=== PATIENT | female | born 1995 | race Two or more races ===

== ENCOUNTER → 2021-08-04 | Outpatient (CLI) | payer MEDICAID ==
[2021-08-04 13:14] LABS: Basophils # (auto) 0 10 ^3/uL (0-0.2); Basophils % (auto) 0.2 % (0.0-2.0); Eosinophils # (auto) 0.1 10 ^3/uL (0-0.8); Eosinophils % (auto) 0.6 % (0.0-7.0); Hemoglobin 13.3 g/dL (12.2-16.2); Lymphocytes # (auto) 1.5 10 ^3/uL (0.4-5.4); Lymphocytes % (auto) 16.3 % (10.0-50.0); Mean Corpuscular Volume 82.4 fL (80.0-100.0); Monocytes # (auto) 0.4 10 ^3/uL (0-1.3); Monocytes % (auto) 4.5 % (0.0-12.0); Neutrophils # (auto) 7.1 10 ^3/uL (1.6-8.6); Neutrophils % (auto) 78.4 % (37.0-80.0); Red Blood Cells 4.74 10^6/uL (4.0-5.20); Red Cell Distribution Width 14.2 % (11.8-14.3)
[2021-08-04 15:43] LABS: Amphetamine Screen, Urine NEGATIVE (NEGATIVE); Barbiturate Scree,Urine NEGATIVE (NEGATIVE); Benzodiazephine Screen, Urine NEGATIVE (NEGATIVE); Cannabinoid Screen, Urine NEGATIVE (NEGATIVE); Cocaine Screen, Urine NEGATIVE (NEGATIVE); Opiate Scree,Urine NEGATIVE (NEGATIVE); Phencyclidine Screen, Urine NEGATIVE (NEGATIVE)
[2021-08-07 07:06] LABS: RPR Non Reactive (Non Reactive)
== END | disposition home or self-care (01) ==
LOC: LAB 12:38
PROVIDERS: ATTEND Obstetrics & Gynecology
DX: Z34.80 Encounter for supervision of other normal pregnancy, unspecified trimester (principal); Z11.3 Encounter for screening for infections with a predominantly sexual mode of transmission; Z31.430 Encounter of female for testing for genetic disease carrier status for procreative management; Z36.0 Encounter for antenatal screening for chromosomal anomalies
CPT/HCPCS: 36415; 80307; 83036; 84112; 84144; 84702; 85025; 86592; 86703; 86762; 86850; 86900; 86901; 87086; 87340

== ENCOUNTER → 2021-09-14 | Outpatient (CLI) | payer MEDICAID ==
[2021-09-14 12:25] LABS: Amphetamine Screen, Urine NEGATIVE (NEGATIVE); Barbiturate Scree,Urine NEGATIVE (NEGATIVE); Benzodiazephine Screen, Urine NEGATIVE (NEGATIVE); Cannabinoid Screen, Urine NEGATIVE (NEGATIVE); Cocaine Screen, Urine NEGATIVE (NEGATIVE); Opiate Scree,Urine NEGATIVE (NEGATIVE); Phencyclidine Screen, Urine NEGATIVE (NEGATIVE)
== END | disposition home or self-care (01) ==
LOC: LAB 10:51
PROVIDERS: ATTEND Obstetrics & Gynecology
DX: Z34.80 Encounter for supervision of other normal pregnancy, unspecified trimester (principal)
CPT/HCPCS: 80307

== ENCOUNTER 2021-12-08 15:20 | Observation (INO) | payer MEDICAID ==
[~2021-12-08] VITALS: Ht 157.5 cm; Wt 97.1 kg
[2021-12-08] MEDS: TERBUTALINE SULFATE 1 MG/ML 1ML VIAL SC SCH ×3 (17:00→19:18)
[2021-12-08 20:17] LABS: Urine Bacteria FEW /hpf (None Seen); Urine Blood Negative /uL (Negative); Urine Mucus FEW (None Seen); Urine Specific Gravity 1.028 (1.001-1.035); Urine WBC 2 /hpf (0 - 5)
[2021-12-08] MEDS ORDERED: PREN-96 OR (20:47)
[2021-12-08] MEDS ORDERED: LACTATED RINGER'S 1,000 ML IV ONE (21:00)
[2021-12-08] MEDS ORDERED: BETAMETHASONE ACET (30mg/5ml) 5ml Vial 6mg/ml IM ONE (21:00)
== END 2021-12-08 22:09 | disposition home or self-care (01) ==
LOC: UNDOADMOB 15:20 → LDRP 15:20 → UNDODISOB 22:09
PROVIDERS: ADMIT Obstetrics & Gynecology; ATTEND Obstetrics & Gynecology
DX: O60.03 Preterm labor without delivery, third trimester (principal); O26.893 Other specified pregnancy related conditions, third trimester; N89.8 Other specified noninflammatory disorders of vagina; Z3A.34 34 weeks gestation of pregnancy
CPT/HCPCS: 59025; 81001; 81002; 94760; 96360; 96361; 96372; G0378; J0702; J3105

== ENCOUNTER 2021-12-09 20:40 | Observation (INO) | payer MEDICAID ==
[~2021-12-09] VITALS: Ht 157.5 cm; Wt 95.7 kg
[~2021-12-09 20:40] MED LIST: PREN-96 OR
[2021-12-09] MEDS ORDERED: BETAMETHASONE ACET (30mg/5ml) 5ml Vial 6mg/ml ONE (22:04)
== END 2021-12-09 22:30 | disposition home or self-care (01) ==
LOC: LDRP 20:40
PROVIDERS: ADMIT Obstetrics & Gynecology; ATTEND Obstetrics & Gynecology
DX: O60.03 Preterm labor without delivery, third trimester (principal); O26.893 Other specified pregnancy related conditions, third trimester; N89.8 Other specified noninflammatory disorders of vagina; Z3A.34 34 weeks gestation of pregnancy
CPT/HCPCS: 59025; 81002; 96372; G0378; J0702

== ENCOUNTER 2021-12-13 10:57 | Observation (INO) | payer MEDICAID ==
[~2021-12-13] VITALS: Ht 157.5 cm; Wt 82.6 kg
[2021-12-13] MEDS ORDERED: ACETAMINOPHEN 500 MG TAB PO ONE (11:45)
[2021-12-13] MEDS ORDERED: TERBUTALINE SULFATE 1 MG/ML 1ML VIAL SC ONE (11:45)
== END 2021-12-13 12:57 | disposition home or self-care (01) ==
LOC: LDRP 10:57
PROVIDERS: ADMIT Obstetrics & Gynecology Obstetrics; ATTEND Obstetrics & Gynecology Obstetrics
DX: O26.893 Other specified pregnancy related conditions, third trimester (principal); R10.30 Lower abdominal pain, unspecified; Z3A.35 35 weeks gestation of pregnancy
CPT/HCPCS: 59025; 81002; 94760; 96372; G0378; J3105

== ENCOUNTER → 2021-12-14 | Outpatient (CLI) | payer MEDICAID ==
[2021-12-14 11:53] LABS: Basophils # (auto) 0 10 ^3/uL (0-0.2); Eosinophils # (auto) 0 10 ^3/uL (0-0.8); Hematocrit 32.9 % (36.0-46.0); Lymphocytes # (auto) 1.7 10 ^3/uL (0.4-5.4); Monocytes # (auto) 0.5 10 ^3/uL (0-1.3); Monocytes % (auto) 4.8 % (0.0-12.0); Neutrophils # (auto) 7.5 10 ^3/uL (1.6-8.6); Neutrophils % (auto) 77.1 % (37.0-80.0); White Blood Cell 9.7 10^3/uL (4.4-10.8)
[2021-12-14 11:56] LABS: Basophils % (auto) 0.3 % (0.0-2.0); Eosinophils % (auto) 0.4 % (0.0-7.0); Hemoglobin 10.6 g/dL (12.2-16.2); Lymphocytes % (auto) 17.4 % (10.0-50.0); Mean Corpuscular Hemoglobin 25.6 pg (28.0-32.0); Mean Corpuscular Hgb Conc. 32.3 g/dL (32.0-36.0); Mean Corpuscular Volume 79.2 fL (80.0-100.0); Red Blood Cells 4.16 10^6/uL (4.0-5.20); Red Cell Distribution Width 13.7 % (11.8-14.3)
[2021-12-15 08:06] LABS: RPR Non Reactive (Non Reactive)
== END | disposition home or self-care (01) ==
LOC: LAB 11:29
PROVIDERS: ATTEND Obstetrics & Gynecology
DX: Z34.80 Encounter for supervision of other normal pregnancy, unspecified trimester (principal); Z3A.00 Weeks of gestation of pregnancy not specified
CPT/HCPCS: 36415; 84112; 85025; 86592

== ENCOUNTER 2021-12-28 10:14 | Observation (INO) | payer MEDICAID ==
[2021-12-28] MEDS ORDERED: TERBUTALINE SULFATE 1 MG/ML 1ML VIAL SC SCH (12:00)
== END 2021-12-28 12:51 | disposition home or self-care (01) ==
LOC: UNDOADMOB 10:14 → LDRP 10:14 → UNDODISOB 12:51
PROVIDERS: ADMIT Obstetrics & Gynecology; ATTEND Obstetrics & Gynecology
DX: O36.8130 Decreased fetal movements, third trimester, not applicable or unspecified (principal); Z3A.37 37 weeks gestation of pregnancy
CPT/HCPCS: 59025; 76818; 81002; 94760; 96372; G0378; J3105

== ENCOUNTER 2021-12-31 08:04 | Observation (INO) | payer MEDICAID ==
[~2021-12-31] VITALS: Ht 157.5 cm; Wt 84.4 kg
[2021-12-31] MEDS ORDERED: PROMETHAZINE HCL 25 MG/ML 1ML IV ONE (20:30)
== END 2021-12-31 19:42 | disposition home or self-care (01) ==
LOC: LDRP 16:45
PROVIDERS: ADMIT Obstetrics & Gynecology; ATTEND Obstetrics & Gynecology
DX: O32.1XX0 Maternal care for breech presentation, not applicable or unspecified (principal); O62.9 Abnormality of forces of labor, unspecified; Z3A.37 37 weeks gestation of pregnancy
CPT/HCPCS: 59025; 81002; 94760; G0378

== ENCOUNTER 2022-01-04 01:48 | Inpatient (IN) | payer MEDICAID ==
[~2022-01-04] VITALS: Ht 154.9 cm; Wt 98.4 kg
[2022-01-04] VITALS (30 sets, daily range): BP systolic 81–134; BP diastolic 34–79
[2022-01-04] MEDS ORDERED: DOCU-94 PO (02:36)
[2022-01-04] MEDS ORDERED: IRON150T2 PO (02:36)
[2022-01-04 02:53] LABS: Alcohol, Urine < 3.0 mg/dL (0-10); Amphetamine Screen, Urine NEGATIVE (NEGATIVE); Barbiturate Scree,Urine NEGATIVE (NEGATIVE); Benzodiazephine Screen, Urine NEGATIVE (NEGATIVE); Cannabinoid Screen, Urine NEGATIVE (NEGATIVE); Cocaine Screen, Urine NEGATIVE (NEGATIVE); Opiate Scree,Urine NEGATIVE (NEGATIVE); Phencyclidine Screen, Urine NEGATIVE (NEGATIVE)
[2022-01-04] MEDS ORDERED: ceFAZolin 2 GM in D5W 5% 100 ML IV ONE (03:00)
[2022-01-04] MEDS ORDERED: LACTATED RINGER'S 1,000 ML IV ONE (03:00)
[2022-01-04 03:06] LABS: Urine Bacteria FEW /hpf (None Seen); Urine Blood 3+ /uL (Negative); Urine Mucus FEW (None Seen); Urine Specific Gravity 1.011 (1.001-1.035); Urine WBC 30 /hpf (0 - 5)
[2022-01-04 03:28] LABS: Basophils # (auto) 0 10 ^3/uL (0-0.2); Eosinophils # (auto) 0.1 10 ^3/uL (0-0.8); Hemoglobin 10.4 g/dL (12.2-16.2); Lymphocytes % (auto) 23.5 % (10.0-50.0)
[2022-01-04 03:29] LABS: Basophils % (auto) 0.5 % (0.0-2.0); Eosinophils % (auto) 0.6 % (0.0-7.0); Hematocrit 31.6 % (36.0-46.0); Lymphocytes # (auto) 1.9 10 ^3/uL (0.4-5.4); Mean Corpuscular Hgb Conc. 32.8 g/dL (32.0-36.0); Mean Corpuscular Volume 79.2 fL (80.0-100.0); Monocytes # (auto) 0.4 10 ^3/uL (0-1.3); Monocytes % (auto) 5.3 % (0.0-12.0); Neutrophils # (auto) 5.8 10 ^3/uL (1.6-8.6); Neutrophils % (auto) 70.1 % (37.0-80.0); Red Blood Cells 3.99 10^6/uL (4.0-5.20); Red Cell Distribution Width 14.5 % (11.8-14.3); White Blood Cell 8.3 10^3/uL (4.4-10.8)
[2022-01-04 03:46] LABS: Albumin 2.5 g/dL (3.4-5.0); BUN/Creatinine Ratio 13.5; Calcium 8.5 mg/dL (8.5-10.1); Potassium 3.8 mmol/L (3.5-5.1)
[2022-01-04 03:48] LABS: Bilirubin, Total 0.4 mg/dL (0.2-1.0); Total Protein 6.2 g/dL (6.4-8.2)
[2022-01-04 03:52] LABS: INR 0.89 (0.9-1.15); Partial Thromboplastin Time 29.9 sec (24.6-33.4)
[2022-01-04] MEDS ORDERED: SODIUM CITR/CITRIC ACID ORAL SOLN 30 ML PO ONE (04:00)
[2022-01-04] MEDS ORDERED: ceFAZolin 1GM/50ML 100 ML IV ONE (04:30)
[2022-01-04] MEDS ORDERED: TETRACAINE 1% INJ 2 ML VIAL IJ ONE (04:41)
[2022-01-04] MEDS ORDERED: MORPHINE SULF PF 5 MG/10 ML VIAL ONE (04:43)
[2022-01-04] MEDS ORDERED: fentaNYL CITRATE 5 ML ONE (05:33)
[2022-01-04] MEDS ORDERED: MIDAZOLAM HCL 2MG/2ML 2ml VIAL (1mg/ml) ONE (05:33)
[2022-01-04] MEDS ORDERED: ROCURONIUM 10MG/ML 10ML VIAL IV ONE (05:51)
[2022-01-04] MEDS ORDERED: SIMETHICONE 80 MG CHEWABLE TABLET PO PRN (06:30)
[2022-01-04] MEDS ORDERED: ePHEDrine SULFATE 50 MG/ML AMP IV PRN (06:30)
[2022-01-04] MEDS ORDERED: ONDANSETRON HCL 4 MG/2 ML VIAL IV PRN ×2 (06:30→07:00)
[2022-01-04] MEDS ORDERED: GUM (CHEWING) 1 GUM CHEW CHEW ONE (06:30)
[2022-01-04] MEDS ORDERED: ceFAZolin 1GM/50ML 50 ML IV ONE (06:30)
[2022-01-04] MEDS ORDERED: ONDANSETRON HCL 4 MG/2 ML VIAL ONE (06:42)
[2022-01-04] MEDS ORDERED: ETOMIDATE (2MG/ML) 20ML VIAL IV ONE (06:42)
[2022-01-04] MEDS ORDERED: DexAMETHasone SOD PHOS 10MG/1ML VIAL INJ IV PRN (07:00)
[2022-01-04] MEDS ORDERED: NALBUPHINE HCL 10 MG/1ml INJECTION SUBCUT ONE (07:00)
[2022-01-04] MEDS ORDERED: KETOROLAC TROMETH 30 MG/ML 1ML VIAL IV PRN (07:00)
[2022-01-04] MEDS ORDERED: NALOXONE HCL 0.4 MG/ML VIAL IV PRN (07:00)
[2022-01-04] MEDS ORDERED: diphenhdrAMINE HCL 50 MG/1 ML VL IV PRN (07:00)
[2022-01-04] MEDS ORDERED: HYDROmorphone HCL 2 MG/ML VL/or syr ONE (07:00)
[2022-01-04] MEDS: HYDROmorphone HCL 2 MG/ML VL/or syr IV PRN ×3 (07:04→07:35)
[2022-01-04] MEDS: LACTATED RINGER'S 1,000 ML IV SCH ×3 (09:00→19:00)
[2022-01-04] MEDS: KETOROLAC TROMETH 30 MG/ML 1ML VIAL IV PRN ×3 (10:55→22:18)
[2022-01-04] MEDS ORDERED: ACETAMINOPHEN IV 1000 MG/100ML (10MG/ML) IV ONE (20:15)
[2022-01-04] MEDS: DOCUSATE SOD 100 MG CAP PO SCH (22:00)
[2022-01-05] VITALS (12 sets, daily range): BP systolic 96–129; BP diastolic 59–126
[2022-01-05] MEDS ORDERED: HYDROmorphone HCL 2 MG/ML VL/or syr IV ONE (01:30)
[2022-01-05] MEDS: KETOROLAC TROMETH 30 MG/ML 1ML VIAL IV PRN (04:21)
[2022-01-05] MEDS ORDERED: IBUPROFEN 600 MG TAB PO SCH (06:00)
[2022-01-05] MEDS ORDERED: HYDROcodone-ACET 5/325MG TAB PO PRN (06:00)
[2022-01-05 06:06] LABS: RPR Non Reactive (Non Reactive)
[2022-01-05 06:15] LABS: Basophils # (auto) 0 10 ^3/uL (0-0.2); Eosinophils # (auto) 0 10 ^3/uL (0-0.8); Hemoglobin 8.8 g/dL (12.2-16.2); Red Cell Distribution Width 14.5 % (11.8-14.3)
[2022-01-05 06:17] LABS: Basophils % (auto) 0.3 % (0.0-2.0); Eosinophils % (auto) 0.1 % (0.0-7.0); Hematocrit 26.4 % (36.0-46.0); Lymphocytes # (auto) 1.1 10 ^3/uL (0.4-5.4); Lymphocytes % (auto) 12.1 % (10.0-50.0); Mean Corpuscular Hemoglobin 26.4 pg (28.0-32.0); Mean Corpuscular Hgb Conc. 33.3 g/dL (32.0-36.0); Mean Corpuscular Volume 79.1 fL (80.0-100.0); Monocytes # (auto) 0.4 10 ^3/uL (0-1.3); Monocytes % (auto) 4.6 % (0.0-12.0); Neutrophils # (auto) 7.8 10 ^3/uL (1.6-8.6); Neutrophils % (auto) 82.9 % (37.0-80.0); Red Blood Cells 3.34 10^6/uL (4.0-5.20); White Blood Cell 9.5 10^3/uL (4.4-10.8)
[2022-01-05] MEDS: HYDROcodone-ACET 5/325MG TAB PO PRN ×2 (06:50→18:41)
[2022-01-05] MEDS: IBUPROFEN 800 MG TAB PO PRN ×2 (12:59→22:11)
[2022-01-05] MEDS ORDERED: IBUP800T26 PO (17:15)
[2022-01-05] MEDS ORDERED: HYDR-4902 PO (17:15)
[2022-01-05] MEDS: DOCUSATE SOD 100 MG CAP PO SCH (22:10)
[2022-01-06 03:00] VITALS: BP 110/77
[2022-01-06] MEDS: HYDROcodone-ACET 5/325MG TAB PO PRN ×4 (04:01→21:52)
[2022-01-06 07:15] VITALS: BP 121/70
[2022-01-06 11:04] VITALS: BP 130/84
[2022-01-06] MEDS: IBUPROFEN 800 MG TAB PO PRN (11:11)
[2022-01-06 15:00] VITALS: BP 124/78
[2022-01-06 19:16] VITALS: BP 113/73
[2022-01-06] MEDS: DOCUSATE SOD 100 MG CAP PO SCH (21:53)
[2022-01-06] MEDS ORDERED: BISACODYL 10 MG RECT SUPP PR ONE (22:30)
[2022-01-06 23:00] VITALS: BP 112/81
[2022-01-07 03:00] VITALS: BP 125/77
[2022-01-07] MEDS: IBUPROFEN 800 MG TAB PO PRN (05:11)
[2022-01-07] MEDS: HYDROcodone-ACET 5/325MG TAB PO PRN (08:30)
[2022-01-07] MEDS ORDERED: SUCCINYLCHOLINE CHLORIDE 20 MG/ML 10ML VIAL IV ONE (10:42)
[2022-01-07] MEDS ORDERED: NEOSTIGMINE 1 MG/ML INJ (10mg/10ML VIAL) IV ONE (10:42)
[2022-01-07] MEDS ORDERED: GLYCOPYRROLATE 0.2 MG/ML 1ML VIAL IV ONE (10:42)
== END 2022-01-07 10:43 | disposition home or self-care (01) | DRG 540 ==
LOC: LDRP 01:48 → OBSVTOIN 02:47 → LDRP 05:40
PROVIDERS: ADMIT Obstetrics & Gynecology Obstetrics; ATTEND Obstetrics & Gynecology Obstetrics
PROC: 10D00Z1 Extraction of Products of Conception, Low, Open Approach (ICD-10-PCS; principal; 2022-01-04 05:00)
DX: O32.8XX0 Maternal care for other malpresentation of fetus, not applicable or unspecified (principal); R71.0 Precipitous drop in hematocrit; Z20.822 Contact with and (suspected) exposure to COVID-19; Z37.0 Single live birth; Z3A.38 38 weeks gestation of pregnancy; Z88.8 Allergy status to other drugs, medicaments and biological substances; Z3A.01 Less than 8 weeks gestation of pregnancy
CPT/HCPCS: 36415; 59025; 76815; 80053; 80307; 81001; 81002; 84112; 85025; 85610; 85730; 86592; 86850; 86900; 86901; 87426; 94760; 94762; 96360; 96361; 96365; 96366; 96374; 96375; G0378; J0131; J0330; J0690; J1885; J2250; J2405; J7060